=== PATIENT | female | born 1995 | race Caucasian/White ===

== ENCOUNTER 2021-11-26 13:18 | Outpatient (CLI) | payer OTHER | END 2021-11-26 13:51 | disposition home or self-care (01) | LOC: NST 13:18 | PROVIDERS: ATTEND Obstetrics & Gynecology Maternal & Fetal Medicine | DX: Z34.83 Encounter for supervision of other normal pregnancy, third trimester (principal) ==

== ENCOUNTER 2021-12-24 13:30 | Inpatient (IN) | payer OTHER ==
[~2021-12-24] VITALS: Ht 152.4 cm; Wt 80.7 kg
[2022-01-06] MEDS ORDERED: PRENATAL CAPLE1 EAC1 (09:53)
[2022-01-06] MEDS ORDERED: CHILDREN'S ASPI81 MG (09:53)
== END 2022-01-07 08:42 | disposition home or self-care (01) | DRG 807 ==
LOC: LDR 01-06 05:39 → OB/GYN 01-12 13:30
PROVIDERS: ADMIT Obstetrics & Gynecology; ATTEND Obstetrics & Gynecology
PROC: 10D07Z6 Extraction of Products of Conception, Vacuum, Via Natural or Artificial Opening (ICD-10-PCS; principal; 2022-01-06)
PROC: 0KQM0ZZ Repair Perineum Muscle, Open Approach (ICD-10-PCS; 2022-01-06)
PROC: 4A1HXCZ Monitoring of Products of Conception, Cardiac Rate, External Approach (ICD-10-PCS; 2022-01-06)
DX: O70.1 Second degree perineal laceration during delivery (principal); Z37.0 Single live birth; O66.5 Attempted application of vacuum extractor and forceps; Z3A.39 39 weeks gestation of pregnancy; Z20.822 Contact with and (suspected) exposure to COVID-19

== ENCOUNTER 2021-12-31 14:03 | Outpatient (CLI) | payer OTHER | END 2021-12-31 15:22 | disposition home or self-care (01) | LOC: NST 14:03 | PROVIDERS: ATTEND Obstetrics & Gynecology Maternal & Fetal Medicine | DX: Z34.83 Encounter for supervision of other normal pregnancy, third trimester (principal) ==

== ENCOUNTER → 2022-01-05 14:38 | Outpatient (CLI) | payer OTHER ==
[~2022-01-05 14:38] MED LIST: CHILDREN'S ASPI81 MG; PRENATAL CAPLE1 EAC1
== END | disposition home or self-care (01) ==
LOC: NST 14:38
PROVIDERS: ATTEND Obstetrics & Gynecology Maternal & Fetal Medicine
DX: Z34.83 Encounter for supervision of other normal pregnancy, third trimester (principal)